=== PATIENT | female | born 1950 | race Two or more races ===

== ENCOUNTER 2023-01-06 06:40 | Day surgery (SDC) | payer OTHER ==
[~2023-01-06 06:40] MED LIST: ANASTROZOLE1 MG PO; BUPROPION HCL75 MG PO; CLONAZEPAM2 M1 PO; HORIZANT300 MG PO; SILENOR3 MG PO; SINGULAIR5 MG PO; SYNTHROID137 MCG PO; ZOCOR20 MG PO
== END 2023-01-10 19:55 | disposition home or self-care (01) ==
LOC: CIR.AMB
PROVIDERS: ATTEND Surgery
DX: C50.811 Malignant neoplasm of overlapping sites of right female breast (principal); R59.0 Localized enlarged lymph nodes; Z20.822 Contact with and (suspected) exposure to COVID-19; Z91.041 Radiographic dye allergy status; Z88.6 Allergy status to analgesic agent; E78.5 Hyperlipidemia, unspecified; E03.9 Hypothyroidism, unspecified